=== PATIENT | female | born 1990 | race Caucasian/White ===

== ENCOUNTER 2018-02-04 08:43 | Emergency (ER) | payer OTHER ==
[2018-02-04] MEDS ORDERED: Ondansetron 4 MG Tab.DIS PO ONE (09:16)
--- NOTE | 2018-02-04 09:18 | EDM.PDOC ---
ED HPI GENERAL MEDICAL PROBLEM - General Chief Complaint: Abdominal Pain Stated Complaint: 15 WKS PG - ABDOMINAL PAIN Time Seen by Provider: 02/04/18 08:58 Source of Information: Reports: Patient, Family () History Limitations: Reports: No Limitations - History of Present Illness INITIAL COMMENTS - FREE TEXT/NARRATIVE: The patient states that she developed entire abdomen abdominal sharp pain around 07:30 this morning. The pain has been coming and going, lasting about 2 minutes, repeating about every 5-10 minutes. She has had nausea, but no emesis. No constipation or diarrhea. No urinary symptoms. No vaginal bleeding. The patient states that she has had similar symptoms countless times in the past , secondary to irritable bowel syndrome. The patient also states that she is approximately 15 weeks gestation. LMP 2017 (15 weeks 0 days by dates). LESLY 07/31/2018. . The patient's [facility] is Dr. Chris Kuo, in [place]. The patient states that she has undergone one obstetric ultrasound at around 8 weeks gestation, demonstrating a SLIUP. The patient is prescribed vitamins and Zofran, however, states that she has not taken any Zofran today. The patient does not appear PCP. 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: : 1 Para: 0 Endocrine/Metabolic History: Reports: Obesity/BMI 30+ - Past Surgical History HEENT Surgical History: Reports: Oral Surgery (wisdom teeth extraction) GI Surgical History: Reports: Colonoscopy Social & Family History - Family History Family Medical History: Noncontributory - Tobacco Use Smoking Status *Q: Never Smoker Second Hand Smoke Exposure: No - Alcohol Use Alcohol Use History: Yes Alcohol Use Frequency: Socially (when not ) - Recreational Drug Use Recreational Drug Use: No - Living Situation & Occupation Living situation: Reports: , with Spouse Occupation: Employed ([employer]) ED ROS GENERAL - Review of Systems Review Of Systems: ROS reveals no pertinent complaints other than HPI. ED EXAM, GI/ABD - Physical Exam Exam: See Below Exam Limited By: No Limitations General Appearance: Alert, WD/WN, No Apparent Distress Eyes: Bilateral: Normal Appearance, EOMI Ears: Normal External Exam, Hearing Grossly Normal Nose: Normal Inspection, No Blood Throat/Mouth: Normal Inspection, Normal Lips, Normal Voice, No Airway Compromise Head: Atraumatic, Normocephalic Neck: Normal Inspection, Full Range of Motion Respiratory/Chest: No Respiratory Distress, Lungs Clear, Normal Breath Sounds, No Accessory Muscle Use Cardiovascular: Normal Peripheral Pulses, Regular Rate, Rhythm, No Gallop, No JVD, No Murmur, No Rub GI/Abdominal Exam: Normal Bowel Sounds, Soft, No Distention, No Abnormal Bruit, No Mass, Tender (primarily to the lower abdomen), Other (Obese. Gravid uterus consistent with dates.) (Female) Exam: Deferred Rectal (Female) Exam: Deferred Back Exam: Normal Inspection, Full Range of Motion. No: CVA Tenderness (L), CVA Tenderness (R) Extremities: Normal Inspection, Normal Range of Motion, No Pedal Edema, Normal Capillary Refill Neurological: Alert, Oriented, Normal Cognition, No Motor/Sensory Deficits Psychiatric: Normal Affect Skin Exam: Warm, Dry, Intact, Normal Color, No Rash Course - Vital Signs Last Recorded V/S: Last Vital Signs Temp 36.6 C 02/04/18 08:50 Pulse 72 02/04/18 08:50 Resp 16 02/04/18 08:50 BP 115/77 02/04/18 08:50 Pulse Ox 99 02/04/18 08:50 - Orders/Labs/Meds Orders: Active Orders 24 hr Category Date Time Status Heart Tones [RC] ASDIRECTED Care 02/04/18 09:15 Active UA W/MICROSCOPIC [URIN] Stat Lab 02/04/18 10:10 Ordered Labs: Laboratory Tests 02/04/18 02/04/18 02/04/18 Range/Units 09:45 09:45 10:10 WBC 10.73 H (3.98-10.04) K/mm3 RBC 4.45 (3.98-5.22) M/mm3 Hgb 13.3 (11.2-15.7) gm/L Hct 38.9 (34.1-44.9) % MCV 87.4 (79.4-94.8) fl MCH 29.9 (25.6-32.2) pg MCHC 34.2 (32.2-35.5) g/dl RDW Std Deviation 39.6 (36.4-46.3) fL Plt Count 276 (182-369) K/mm3 MPV 10.1 (9.4-12.3) fl Neutrophils % (Manual) 67 H (40-60) % Band Neutrophils % 2 (0-10) % Lymphocytes % (Manual) 16 L (20-40) % Atypical Lymphs % 0 % Monocytes % (Manual) 8 (2-10) % Eosinophils % (Manual) 5 (0.7-5.8) % Basophils % (Manual) 2 H (0.1-1.2) Platelet Estimate Adequate RBC Morph Comment Normal Sodium 136 (136-145) mEq/L Potassium 4.0 (3.5-5.1) mEq/L Chloride 104 (98-107) mEq/L Carbon Dioxide 25 (21-32) mEq/L Anion Gap 11.0 (5-15) BUN 9 (7-18) mg/dL Creatinine 0.6 (0.55-1.02) mg/dL Est Cr Clr Drug Dosing 123.77 mL/min Estimated GFR (MDRD) > 60 (>60) mL/min BUN/Creatinine Ratio 15.0 (14-18) Glucose 82 (74-106) mg/dL Calcium 9.0 (8.5-10.1) mg/dL Total Bilirubin 0.3 (0.2-1.0) mg/dL AST 12 L (15-37) U/L ALT 18 (14-59) U/L Alkaline Phosphatase 48 (46-116) U/L Total Protein 7.4 (6.4-8.2) g/dl Albumin 3.4 (3.4-5.0) g/dl Globulin 4.0 gm/dL Albumin/Globulin Ratio 0.9 L (1-2) Lipase 134 (73-393) U/L Urine Color Yellow (Yellow) Urine Appearance Clear (Clear) Urine pH 6.5 (5.0-8.0) Ur Specific [place] 1.025 (1.005-1.030) Urine Protein Negative (Negative) Urine Glucose (UA) Negative (Negative) Urine Ketones Negative (Negative) Urine Occult Blood Trace-intact H (Negative) Urine Nitrite Negative (Negative) Urine Bilirubin Negative (Negative) Urine Urobilinogen 0.2 (0.2-1.0) Ur Leukocyte Esterase Negative (Negative) Urine RBC 5-10 H (0-5) /hpf Urine WBC 0-5 (0-5) /hpf Ur Epithelial Cells 0-5 (0-5) /hpf Urine Bacteria Few (FEW) /hpf Urine Mucus Few (FEW) /hpf Meds: Medications Discontinued Medications Generic Name Dose Route Start Last Admin Trade Name Freq PRN Reason Stop Dose Admin Ondansetron HCl 4 mg 02/04/18 09:16 02/04/18 09:20 Zofran Odt PO 02/04/18 09:17 4 mg ONETIME ONE Administration - Re-Assessments/Exams Free Text/Narrative Re-Assessment/Exam: 02/04/18 09:16 The patient is complaining of generalized abdominal pain, on and off since 07: 30 this morning. She is 15 weeks gestation, but her pain is similar to prior IBS symptoms. No vaginal bleeding. On exam, she is tender to her lower abdomen. She has a prior obstetric ultrasound confirming a SLIUP. For today's purposes, I have ordered blood work and a urinalysis, to make sure that she does not have a UTI, along with heart tones, but I don't see an indication for x-rays or a CT scan. I have ordered 4 mg oral Zofran. 02/04/18 09:37 heart tones are 160 to 165. 02/04/18 11:47 Test results discussed with the patient. Today's workup is unremarkable, and does not explain the cause of the patient's symptoms, but appear to be consistent with the patient's chronic/recurrent irritable bowel syndrome. I will discharge her home, with the recommendation that she follow-up with her [facility], Dr. Kuo. The patient is agreeable. Departure - Departure Time of Disposition: 11:48 Disposition: Home, Self-Care 01 Condition: Good Clinical Impression: Abdominal pain of unknown etiology, - Discharge Information *PRESCRIPTION DRUG MONITORING PROGRAM REVIEWED*: Not Applicable *COPY OF PRESCRIPTION DRUG MONITORING REPORT IN PATIENT LUCIA: Not Applicable Referrals: Chris Kuo MD [Primary Care Provider] - Forms: ED Department Discharge Additional Instructions: You were seen in the emergency room for intermittent abdominal pain and nausea. Workup in the ER included blood work, a urinalysis, and heart tones. Your entire workup was unremarkable, and does not explain the cause of your symptoms. There is no sign of infection. You do not have a UTI. Your heart tones were normal at 160 to 165. We recommend that you follow-up with your [facility], Dr. Chris Kuo, as needed. If any other problems, please do not hesitate to return to the ER. - My Orders Last 24 Hours: My Active Orders 02/04/18 09:15 Heart Tones [RC] ASDIRECTED 02/04/18 10:10 UA W/MICROSCOPIC [URIN] Stat - Assessment/Plan Last 24 Hours: My Active Orders 02/04/18 09:15 Heart Tones [RC] ASDIRECTED 02/04/18 10:10 UA W/MICROSCOPIC [URIN] Stat
== END 2018-02-04 11:55 | disposition home or self-care (01) ==
LOC: JD.ED 08:43
DX: O99.89 Other specified diseases and conditions complicating pregnancy, childbirth and the puerperium (principal); R10.9 Unspecified abdominal pain; Z3A.15 15 weeks gestation of pregnancy; O99.212 Obesity complicating pregnancy, second trimester; E66.9 Obesity, unspecified
CPT/HCPCS: 36415; 80053; 81001; 83690; 85007; 85027; 99284; A9270; 99283

== ENCOUNTER 2018-11-16 01:55 | Emergency (ER) | payer BC, OTHER ==
[2018-11-16] MEDS ORDERED: Ondansetron 4 MG/2 ML SDV IV ONE (01:56)
[2018-11-16] MEDS ORDERED: HYDROmorphone 0.5 MG/0.5 ML Syringe ONE ×3 (02:21→07:00)
[2018-11-16] MEDS ORDERED: Sodium Chloride 0.9% 1,000 ML ONE (02:21)
[2018-11-16] MEDS ORDERED: Ondansetron 4 MG/2 ML SDV ONE (02:21)
[2018-11-16] MEDS ORDERED: Ketorolac 30 MG/ML SDV ONE ×2 (02:21→07:00)
--- NOTE | 2018-11-16 06:18 | EDM.PDOC ---
ED HPI GENERAL MEDICAL PROBLEM - General Chief Complaint: Flank Pain Stated Complaint: LEFT SIDE PAIN Time Seen by Provider: 11/16/18 06:09 Source of Information: Reports: Patient, Family History Limitations: Reports: No Limitations - History of Present Illness INITIAL COMMENTS - FREE TEXT/NARRATIVE: The patient presents with left flank and abdominal pain. She did not feel well yesterday but early this morning she woke up with severe left flank pain that radiates down into her abdomen. She has nausea and vomiting. She has no diarrhea. She has no dysuria and no hematuria. She has never had a kidney stone before. She has no fever, chills, cough, chest pain or shortness of breath. She still has her appendix and gallbladder. Onset: Sudden Duration: Minutes: Location: Reports: Abdomen, Back (left flank) Quality: Reports: Sharp Severity: Severe Improves with: Reports: None Worsens with: Reports: None Context: Reports: Activity (she was sleeping when this started) Associated Symptoms: Reports: Nausea/Vomiting. 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: 15 weeks Endocrine/Metabolic History: Reports: Obesity/BMI 30+ - Past Surgical History HEENT Surgical History: Reports: Oral Surgery (wisdom teeth extraction) GI Surgical History: Reports: Colonoscopy Social & Family History - Family History Family Medical History: Noncontributory - Living Situation & Occupation Living situation: Reports: , with Spouse Occupation: Employed ([employer]) ED ROS GENERAL - Review of Systems Review Of Systems: See Below Constitutional: Reports: No Symptoms HEENT: Reports: No Symptoms Respiratory: Reports: No Symptoms Cardiovascular: Reports: No Symptoms Endocrine: Reports: No Symptoms GI/Abdominal: Reports: Abdominal Pain, Nausea, Vomiting : Reports: Flank Pain (left) Musculoskeletal: Reports: No Symptoms Skin: Reports: No Symptoms ED EXAM, GI/ABD - Physical Exam Exam: See Below Exam Limited By: No Limitations General Appearance: Alert, No Apparent Distress Ears: Normal External Exam Nose: Normal Inspection Head: Atraumatic, Normocephalic Neck: Normal Inspection Respiratory/Chest: No Respiratory Distress, Lungs Clear, Normal Breath Sounds Cardiovascular: Regular Rate, Rhythm, No Edema, No Murmur GI/Abdominal Exam: Soft, No Organomegaly, No Mass, Tender (Moderate tenderness to the left abdomen) Back Exam: CVA Tenderness (L) Extremities: Normal Inspection Course - Orders/Labs/Meds Orders: Active Orders 24 hr Category Date Time Status Abdomen wo Cont [CT] Stat Exams 11/16/18 03:05 Taken CBC WITH AUTO DIFF [HEME] Routine Lab 11/16/18 02:30 Received COMPREHENSIVE METABOLIC PN,CMP [CHEM] Routine Lab 11/16/18 02:30 Received HCG QUALITATIVE,SERUM [CHEM] Routine Lab 11/16/18 02:30 Received LIPASE [CHEM] Routine Lab 11/16/18 02:30 Received UA W/MICROSCOPIC [URIN] Routine Lab 11/16/18 02:30 Received - Re-Assessments/Exams Free Text/Narrative Re-Assessment/Exam: 11/16/18 06:13 I ordered an IV NS at 125mL/hr, zofran 4mg IV, toradol 30mg IV, dilaudid 0.5mg IV, labs, UA and a CT of her abdomen and pelvis without contrast to look for a kidney stone. Her CBC and CMP look good. Her HCG is negative. Her CT shows obstructive uropathy with a 3mm stone within the proximal left ureter causing mild left hydronephrosis. An additional punctate nonobstructive stone is seen on the right side. The distal transverse and proximal descending colon are decompressed with questionable wall thickening. Focal colitis is not excluded. Mild bladder wall thickening. Correlate for possible cystitis. Cholelithiasis. Small umbilical hernia. It took awhile for her to urinate. I have it back and it just had blood and no sign of UTI. She had some pain come back so I ordered more dilaudid 0.5mg IV. I will discharge her home with hydrocodone and some flomax. Departure - Departure Time of Disposition: 06:20 Disposition: Home, Self-Care 01 Condition: Good Clinical Impression: Ureteric colic, Kidney stone on left side, Ureteral calculus, left Cholelithiases Qualifiers: Cholelithiasis location: gallbladder Cholecystitis presence: without cholecystitis Biliary obstruction: without biliary obstruction Qualified Code(s) : K80.20 - Calculus of gallbladder without cholecystitis without obstruction - Discharge Information *PRESCRIPTION DRUG MONITORING PROGRAM REVIEWED*: No *COPY OF PRESCRIPTION DRUG MONITORING REPORT IN PATIENT LUCIA: No Prescriptions: Hydrocodone/Acetaminophen [Hydrocodon-Acetaminophen 5-325] 1 - 2 each PO Q6HR PRN #20 tablet PRN Reason: Pain Tamsulosin HCl [Flomax] 0.4 mg PO DAILY #7 cap.er.24h Referrals: PCP,None [Primary Care Provider] - Dennis Garner MD [Ordering Only Provider] - 1 Week Forms: ED Department Discharge, ED Return to Work/School Form Additional Instructions: Drink plenty of fluids. Take the flomax daily. Take the hydrocodone as needed for pain. Please return if you are worse. - My Orders Last 24 Hours: My Active Orders 11/16/18 03:05 Abdomen wo Cont [CT] Stat - Assessment/Plan Last 24 Hours: My Active Orders 11/16/18 03:05 Abdomen wo Cont [CT] Stat
[2018-11-16] MEDS ORDERED: Ondansetron 4 MG Tab.DIS PO ONE (06:34)
[2018-11-16] MEDS ORDERED: Sodium Chloride 0.9% 1,000 ML IV ONE (07:00)
--- NOTE | 2018-11-16 08:11 | CT ---
CT abdomen and pelvis Technique: Multiple axial sections were obtained from above the dome of the diaphragm inferiorly through the pubic symphysis. Intravenous and oral contrast not utilized. Study has been performed as a ureteral stone protocol. Findings: Small 3 mm obstructing stone is noted within the proximal left ureter slightly distal to the UPJ. This stone causes mild proximal hydronephrosis. Vague areas of increased density are seen within the renal pyramids suspicious for medullary sponge kidney. No other abnormal calcifications are seen along the course of the ureters or within the kidneys. Small portion of the visualized lung bases are clear. Liver contains no focal abnormality. Spleen appears within normal limits. Adrenal glands show no nodule. Calcified gallstones are seen within the gallbladder. Pancreas appears within normal limits. Aorta shows no aneurysm. No retroperitoneal adenopathy or mesenteric abnormalities are seen. Appendix is seen and is normal in size. No pelvic mass or adenopathy is seen. Bladder is collapsed causing pseudo-wall thickening. Minimal fat-containing umbilical hernia is noted. No bowel wall thickening is felt to be present. Impression: 1. 3 mm obstructing stone within the proximal left ureter located slightly distal to the left UPJ which causes mild proximal hydronephrosis. 2. Findings suspicious for medullary sponge kidney. 3. Calcified gallstones and other incidental findings as noted above. Diagnostic code #3 Agree with preliminary report issued by [facility] ([facility] preliminary report dictated on 11/16/18, 5:20 AM Central Time)
== END 2018-11-16 06:38 | disposition home or self-care (01) ==
LOC: JD.ED 01:55
DX: N13.2 Hydronephrosis with renal and ureteral calculous obstruction (principal); K80.20 Calculus of gallbladder without cholecystitis without obstruction
CPT/HCPCS: 36415; 74176; 80053; 81001; 83690; 84703; 85025; 96361; 96374; 96375; 96376; 99284; A9270; J1170; J1885; J2405; J7040

== ENCOUNTER 2024-01-17 16:41 | Emergency (ER) | payer BC ==
[2024-01-17 20:33] LABS: APPEARANCE,URINE SLT CLOUDY (Clear); BILIRUBIN,URINE NEGATIVE (Negative); COLOR,URINE YELLOW (Yellow); GLUCOSE,URINE NEGATIVE (Negative); KETONES,URINE NEGATIVE (Negative); LEUKOCYTE ESTERASE,URINE 1+ (Negative); NITRITE,URINE NEGATIVE (Negative); OCCULT BLOOD,URINE 2+ (Negative); PH,URINE 6.5 (5.0-8.0); PROTEIN,URINE NEGATIVE (Negative); UROBILINOGEN,URINE 0.2 (0.2-1.0)
[2024-01-17 20:39] LABS: BACTERIA,URINE MANY /hpf (FEW); MUCUS,URINE RARE /hpf (FEW); RBC,URINE 0-5 /hpf (0-5)
[2024-01-17] MEDS: Levofloxacin 250 MG Tab PO ONE (21:52)
== END 2024-01-17 22:00 | disposition home or self-care (01) ==
LOC: JD.ED 16:41
DX: M62.830 Muscle spasm of back (principal); N39.0 Urinary tract infection, site not specified; E66.9 Obesity, unspecified; Z88.8 Allergy status to other drugs, medicaments and biological substances; Z79.899 Other long term (current) drug therapy; Z68.31 Body mass index [BMI] 31.0-31.9, adult
CPT/HCPCS: 81001; 87086; 99283; A9270